=== PATIENT | male | born 1995 | race Caucasian/White ===

== ENCOUNTER 2023-04-02 18:46 | Emergency (ER) | payer OTHER, SELFPAY ==
[2023-04-02 19:08] VITALS: BP 121/68; PULSE 77; RESP 16; TEMP 37.5; O2SAT 99; BMI 19.8
--- NOTE | 2023-04-02 19:11 | ED_ITS ---
HPI - General Adult General Chief complaint: Upper Respiratory Symptoms Stated complaint: sore throat, ear ache/bleeding Time Seen by Provider: 04/02/23 20:27 Source: patient Limitations: no limitations History of Present Illness HPI narrative: 27 years old no significant past medical history presents emergency room for sore throat ongoing for the past week. Patient reports that he has been trying ibuprofen 600 mg once a day without much relief. Patient denies chest pain, cough fever. Abdominal pain nausea or vomiting. Patient denies urinary symptoms. No headache, blurry visions or speech. Related Data Previous Rx's Medication Instructions Recorded amoxicillin 875 mg-potassium 1 tab PO BID #10 tabs 04/02/23 clavulanate 125 mg tablet Allergies Allergy/AdvReac Type Severity Reaction Status Date / Time No Known Allergies Allergy Verified 04/02/23 19:08 Review of Systems Review of Systems: Yes all other systems are reviewed and are negative PENDING SALE TO [facility] Social History Social History Smoked in Last 30 Days: No Substance Use Type: Marijuana Advance Directives: No Advance Directives Information Provided: No Physical Exam ED Vital Signs: Vital Signs - 24 hr 04/02/23 19:08 Temperature 99.5 F Pulse Rate 77 Respiratory Rate 16 Blood Pressure 121/68 Pulse Oximetry 99 Oxygen Delivery Method Room Air BMI result Body Mass Index 19.8 General: Alert, Not in Distress Skin: No rash, warm HEENT: Atraumatic, No Exudate obur positive for Pharyngeal Erythema Resp: Normal Breath sounds bilaterally Cardio: Regular rate and Rhythm, Normal S1, S2 ABD: Abd soft, non tender, no guarding or rebound. Normal Bowel sounds. : No cva tenderness Neuro: Alert, oriented x4, PERRL Strenght 5/5 on all extremities Sensation is preserved in both lower and upper extremities Index to nose: normal Cranial Nerves II-XII grossly intact No dysarthria, or aphasia No neglet. Visual boss are normal bilaterally Psych: Cooperative, NO SI Course Course Course Narrative: This is a rapid medical exam: Additional HPI, ROS, PE not included below will be deferred to primary provider. Patient is a 27-year-old male presenting to the ED with complaint of sore throat for 3 days, right ear pain for 2 days. Daughter is sick with similar symptoms at home. Plan: viral and strep swabs Medical Decision Making Medical Decision Making MDM Narrative: Patient presents emergency room for sore throat. Physical exam is consistent with pharyngitis. Patient has not been taking high dose of NSAID and at this time without tonsillar exudate I think he does not need further testing. Will recommend patient to increase dose of ibuprofen and Tylenol. Patient does not have a primary care physician therefore will be difficult for him to see a medical provider in 3 days therefore I decided to prescribe 5 day course of Augmentin to start in 3 days if symptoms do not improve. Patient understands, agrees with plan and understands return precautions. At this time I do not think patient requires further observation or admission. Admission/Observation Consideration of admission/observation: Escalation of care including admission/observation considered Lab Data MDM Lab Attestation statement: I reviewed the patient's lab results. Labs: Lab Results 04/02/23 Range/Units Unknown Influenza Type A (PCR) NEGATIVE (Negative) Influenza Type B (PCR) NEGATIVE (Negative) RSV RNA Qual (PCR) NEGATIVE (Negative) SARS-CoV-2 RNA (RT-PCR) NEGATIVE (Negative) S. pyogenes GrpA KAREN Negative (Negative) Prescription Management I considered prescription management with: Pain Medication and Antibiotic Discharge Plan Discharge Clinical Impression: Pharyngitis Patient Disposition: Home, Self-Care Additional Instructions: You were seen emergency room for pharyngitis. We recommend using ibuprofen 600 mg every 8 hours for the next 5 days and Tylenol 1000 mg every 6 hours for the next 5 days. We are also prescribing you antibiotic: Augmentin please take this medication if in 3 days he does not have any improvement. Augmentin to be taken twice a day. Return to the emergency room if your symptoms worsen or if you develop shortness of breath, chest pain or you cannot tolerate oral medication. Prescriptions: New amoxicillin-pot clavulanate 875-125 mg tablet 1 tab PO BID Qty: 10 0RF Stand Alone Forms: Work/School Release
[2023-04-02 19:32] LABS: IDNOW Serial# 08D9AD1C; Strep A Nucleic Acid Negative (Negative)
[2023-04-02 20:04] LABS: Influenza A PCR NEGATIVE (Negative); Influenza B PCR NEGATIVE (Negative); Resp Syncy Virus RNA Qual PCR NEGATIVE (Negative); SARS COV2 PCR INHOUSE NEGATIVE (Negative)
[2023-04-02 20:41] VITALS: BP 120/77; PULSE 76; RESP 18; TEMP 36.6; O2SAT 98
== END 2023-04-02 20:46 | disposition home or self-care (01) ==
PROVIDERS: Registered Nurse Emergency; Emergency Provider Student in an Organized Health Care Education/Training Program
DX: J02.9 Acute pharyngitis, unspecified (principal); Z20.822 Contact with and (suspected) exposure to COVID-19; Z20.828 Contact with and (suspected) exposure to other viral communicable diseases
CPT/HCPCS: 0241U; 87651; 99283; 99284

== ENCOUNTER 2024-01-26 19:40 | Emergency (ER) | payer MEDICAID, SELFPAY ==
[2024-01-26 20:23] VITALS: BP 148/86; PULSE 81; RESP 18; TEMP 37.2; O2SAT 99; BMI 20.5
--- NOTE | 2024-01-26 20:26 | ED_ITS ---
HPI - General Adult General Chief complaint: General Medical Stated complaint: bloody stool Time Seen by Provider: 01/26/24 23:31 Source: patient Limitations: no limitations History of Present Illness ED Provider: Fannie Cr PA-C HPI narrative: 28-year-old male presents with rectal bleeding x2 months. Patient states he has known hemorrhoids, he is having bright red blood per rectum with bowel movements. Denies large volume bloody bowel movements, the blood is on the toilet paper. Denies abdominal pain, nausea, vomiting. Patient also complains of difficulty urinating, that he has to ?strain?, to urinate. Denies dysuria, hematuria. Denies testicular pain or swelling, no penile discharge. Related Data Previous Rx's ?Medication ?Instructions ?Recorded amoxicillin 875 mg-potassium 1 tab PO BID #10 tabs 04/02/23 clavulanate 125 mg tablet hydrocortisone acetate 25 mg 25 mg RI BID #12 ea 01/27/24 rectal suppository (Anusol-HC) Allergies Allergy/AdvReac Type Severity Reaction Status Date / Time Penicillins Allergy Unknown Verified 01/26/24 20:24 Review of Systems 2 Review of Systems: Yes all other systems are reviewed and are negative Constitutional: Constitutional: Denies fatigue and Denies fever(s) Cardiovascular: Cardiovascular: Denies chest pain and Denies dyspnea Respiratory: Respiratory: Denies cough and Denies dyspnea Gastrointestinal: Gastrointestinal: Denies abdominal pain, Reports hematochezia, Denies constipation, Denies diarrhea, Denies nausea and Denies vomiting Genitourinary: Genitourinary: Reports difficulty urinating, Denies genital pain and Denies dysuria Endocrine: Endocrine: Denies fatigue [facility] Past Medical History Attestation statement: The following information was validated with the patient. Social History Social History Substance Use Type: Marijuana Advance Directives: No Advance Directives Information Provided: No Do you have a plan to hurt others: No Plan Physical Exam ED Vital Signs: Vital Signs - 24 hr 01/26/24 20:23 01/27/24 00:00 Temperature 98.9 F 97.9 F Pulse Rate 81 73 Respiratory Rate 18 16 Blood Pressure 148/86 H 118/74 Pulse Oximetry 99 98 Oxygen Delivery Method Room Air Room Air BMI result Body Mass Index 20.5 Const Other: Alert, well-appearing Orientation/consciousness: patient oriented x3 Resp Other: Nonlabored respiration Cardio Other: Normal peripheral perfusion GI Other: Abdomen is soft, nondistended nontender, no external hemorrhoids noted on exam no active bleeding per rectum Other: Testicles not swollen no penile discharge Skin Other: Warm dry no rash Neuro General: patient oriented x3, no focal motor deficits and CN's II-XI intact bilaterally Psych Other: Calm cooperative Course Course Course Narrative: This is an RME: Additional HPI, ROS, PE not included below will be deferred to primary provider. RME assessment and note performed by: Faye Mancera PA-C This is a [id number]-[id number]-male who presents to the ER with complaints of bloody stool for the last several months and difficulty urinating. He states that he has to strain to produce a urine stream. He states that this is an issue for his probation as he is unable to produce a urine sample. He states that he gets up in the middle of the night 3-4 times. He also reports he has had bloody stool. No known medical problems. Plan: Labs, UA Medical Decision Making Medical Decision Making MDM Narrative: 28-year-old male presents with rectal bleeding x2 months. Patient states he has known hemorrhoids, he is having bright red blood per rectum with bowel movements. Denies large volume bloody bowel movements, the blood is on the toilet paper. Denies abdominal pain, nausea, vomiting. Patient also complains of difficulty urinating, that he has to ?strain?, to urinate. Denies dysuria, hematuria. Denies testicular pain or swelling, no penile discharge. Problem: Known hemorrhoids History: Per patient I have considered the following differential diagnoses: Hemorrhoids, thrombosed hemorrhoids, perirectal abscess, diverticulosis, diverticulitis, urethritis, UTI, BPH, torsion Plan: Screening labs including a urinalysis were obtained from triage. The patient is not anemic, the urine is not infected. He has no risk for STD, no evidence of urethritis on exam, no swelling of the testicles or pain. No indication for scrotal ultrasound. It would be odd for the patient to have BPH by the age of 28. He can follow up with the urologist. The patient has hemorrhoids, this is the likely source of the bleeding as it is minimal. I told him he needs to follow up with his primary care provider to be referred to GI for a colonoscopy. He understands. We will send with the Anusol suppositories. He has no abdominal pain, his exam was benign, diverticulitis not likely. I have independently reviewed the following tests: Labs: No leukocytosis, not anemic, no electrolyte abnormality, urine not infected Lab Data 01/26/24 20:34 01/26/24 20:34 Labs: Lab Results 01/26/24 01/26/24 Range/Units 20:34 23:45 WBC 7.0 (4.8-10.8) X10*3/uL RBC 5.32 (4.60-5.80) X10*6/uL Hgb 14.6 (14.0-18.0) g/dl Hct 44.3 (42.0-52.0) % MCV 83.3 (80.0-98.0) fL MCH 27.4 (27.0-33.0) pg MCHC 33.0 (31.0-36.0) g/dl RDW 13.5 (11.0-16.0) % Plt Count 266 (160-400) X10*3/uL MPV 11.3 (9.4-12.4) fL Immature Gran % (Auto) 0.1 (0.0-0.4) % Neut % (Auto) 61.0 (45-73) % Lymph % (Auto) 30.4 (20-40) % [place] % (Auto) 7.5 (2-11) % Eos % (Auto) 0.6 (0-4) % Baso % (Auto) 0.4 (0-2) % Lymph # (Auto) 2.1 (1.2-4.9) X10*3/uL [place] # (Auto) 0.5 (0.1-1.2) X10*3/uL Eos # (Auto) 0.0 (0.0-0.4) X10*3/uL Baso # (Auto) 0.0 (0.0-0.2) X10*3/uL Abs Immat Gran (auto) 0.01 (0.00-0.03) X10*3/uL Absolute Neuts (auto) 4.2 (2.0-8.3) x10*3/uL Absolute Nucleated RBC 0.000 (0.0-0.012) X10*3/uL Nucleated RBC % (auto) 0.0 (0.0-0.2) /100WBC Sodium 145 (135-145) mmol/L Potassium 3.8 (3.3-5.1) mmol/L Chloride 108 (96-108) mmol/L Carbon Dioxide 28 (22-29) mmol/L Anion Gap 13 (12-20) BUN 12 (9-16) mg/dL Creatinine 0.90 (0.5-1.4) mg/dL Estim Creat Clear Calc 103.9 Estimated GFR > 60 Random Glucose 75 (60-115) mg/dL Calcium 9.3 (8.4-10.2) mg/dL Total Bilirubin 0.5 (0.0-1.0) mg/dL Direct Bilirubin 0.2 (0.0-0.5) mg/dL AST 25 (5-37) U/L ALT 21 (0-40) U/L Alkaline Phosphatase 60 (39-117) U/L Total Protein 7.0 (6.5-8.0) g/dL Albumin 4.4 (3.5-5.0) g/dL Urine Color Yellow Urine Appearance Clear Urine pH 5.5 (5.0-9.0) Ur Specific [place] >= 1.030 H (1.005-1.025) Urine Protein Negative (Neg-Trace) mg/dL Urine Glucose (UA) Negative (Negative) mg/dL Urine Ketones Trace (Negative) mg/dL Urine Blood Negative (Negative) Urine Nitrite Negative (Negative) Ur Leukocyte Esterase Negative (Negative) Discharge Plan Discharge Clinical Impression: Bleeding hemorrhoids Patient Disposition: Home, Self-Care Instructions: Hemorrhoids (ED), Sitz Bath (DC) Additional Instructions: All of your labs were normal. In regard to your ongoing issues with the hemorrhoids, see home care instructions. You can use the rectal suppositories as needed for discomfort or if they become enlarged. You need to follow up with your primary care provider, this should refer you to a chairman & co founder for potential colonoscopy. In regard to your urinary hesitancy issues, you need to follow up with a urologist. Your primary care provider can provide you with this consult as well. Prescriptions: New hydrocortisone acetate [Anusol-HC] 25 mg suppository 25 mg RI BID Qty: 12 0RF No Action amoxicillin-pot clavulanate 875-125 mg tablet 1 tab PO BID Qty: 10 0RF Interventions: ED Discharge Assessment Last Done: 01/27/24 01:15 Discharge Date/Time: 01/27/24 01:15 Print Language: Spanish
--- OUTSIDE RECORDS SUMMARY | 2024-01-26 20:38 | XMS_ITS | Continuity of Care Document ---
Author Organization [facility] ter Address [address] [place] [id number]- Care Team Providers Care Weatherization Crew Leader Name Role Phone Not on Staff, PCP Primary Care Physician Unavail able Encounter [facility] Date(s): 09/21/21 - 09/21/[address] [address]- Discharge Disposition: A-D/C Home Attending Physician: Rj Gallegos MD Admitting Physician: Rj Gallegos MD Referring Physician: Not on Staff, Referring MD Allergies, Adverse Reactions, Alerts No Known Allergies Immunizations Given and Recorded Vaccine Date Status Refusal Reason Meningococcal Poly Vacc (oldterm) 1 04/16/06 Given influenza virus vaccine, inactivated 2 04/16/06 Gi cherelle tetanus-diphtheria toxoids (Td) 11/17/04 Given Measles/Mumps/Rubella Virus Vaccine 05/13/98 Given Measles/Mumps/Rubella Virus Vaccine 06/05/94 Given Poliovirus Vaccine, Inactivated 05/13/98 Given Poliovirus Vaccine, Inactivated 93 Given Poliovirus Vaccine, Inactivated 93 Given Poliovirus Vaccine, Inactivated 93 Given diphtheria/tetanus/pertussis, acel(DTaP) 07/07/94 Given diphtheria/tetanus/pertussis, acel(DTaP) 93 Given diphtheria/tetanus/pertussis, acel(DTaP) 93 Given diphtheria/tetanus/pertussis, acel(DTaP) 93 Given Hepatitis B Vaccine (old term) 93 Given Hepatitis B Vaccine (old term) 93 Given Hepatitis B Vaccine (old term) 93 Given 1Admin Note: VIS GIVEN 2Admin Note: VIS GIVEN Medications benzoyl peroxide topical 5% cream 1, applicator, Topically, 2 times a day, 45, Gm, 5, 5, 07/22/07 10:43:22, [id number], Constant Indicator Start Date: 07/22/07 Status: Ordered clindamycin topical 1% lotion 1, applicator, Topically, 2 times a day, 60, mL, 5, 5, 07/22/07 10:44:32, Print RYAN Number, [id number], Constant Indicator Start Date: 07/22/07 Status: Ordered Problem List Condition Effective Dates Status Health Status Inform ant Acne(Confirmed) Active 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 Vital Signs Most recent to oldest [Reference Range]: 1 2 Height 173 cm (09/21/21 2:09 PM) Weight 59.5 kg (09/21/21 2:09 PM) Oxygen Saturation [94-100 %] 99 % (09/21/21 2:09 PM) 99 % (09/21/21 2:05 PM) Pulse Rate [55-90 bpm] 86 bpm (09/21/21 2:09 PM) 78 bpm (09/21/21 2:05 PM) Body Mass Index [18.5-24.99] 19.88 (09/21/21 2:09 PM) Blood Pressure [90-138/55-84 mm Hg] 115/ 60mm Hg (09/21/21 2:09 PM) Respiratory Rate [16-30 br/min] 18 br/mi n (09/21/21 2:09 PM) Temperature [96.8-100.4 DegF] 98.1 DegF (09/21/21 2:09 PM) Mode of Delivery (Oxygen) Room air (09/21/21 2:09 PM) Room air (09/21/21 2:05 PM) Blood pressure sites Arm, right (09/21/21 2:09 PM) Temperature Route Oral (09/21/21 2:09 PM) Dry Weight 59.5 kg (09/21/21 2:09 PM)
--- OUTSIDE RECORDS SUMMARY | 2024-01-26 20:38 | XMS_ITS | Continuity of Care Document ---
Author Organization [facility] ter Address [address] [place] [id number]- Care Team Providers Care Bus System Operator Name Role Phone Not on Staff, PCP Primary Care Physician Unavail able Encounter [facility] Date(s): 04/09/21 - 04/09/[address] [address]- Encounter Diagnosis Abdominal pain, lower(Final) - 04/09/21 Discharge Disposition: A-D/C Home Attending Physician: Calista Hinojosa MD Admitting Physician: Calista Hinojosa MD Referring Physician: Not on Staff, Referring MD Allergies, Adverse Reactions, Alerts Substance Reaction Severity Status NKA Active Immunizations Given and Recorded Vaccine Date Status [...] day, 45, Gm, 5, 5, 07/22/07 10:43:22, [id number], Constant Indicator Start Date: 07/22/07 Status: Ordered clindamycin topical 1% lotion 1, applicator, Topically, 2 times a day, 60, mL, 5, 5, 07/22/07 10:44:32, Print RYAN Number, [id number], Constant Indicator Start Date: 07/22/07 Status: Ordered Problem List Condition Effective Dates Status Health Status Inform ant Acne(Confirmed) Active 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 Vital Signs Most recent to oldest [Reference Range]: 1 2 3 Oxygen Saturation [94-100 %] 100 % (04/09/21 12:24 PM) 99 % (04/09/21 11:27 AM) 100 % (04/09/21 10:30 AM) Pulse Rate [55-90 bpm] 93 bpm *H* (04/09/21 12:24 PM) 92 bpm *H* (04/09/21 11:27 AM) 93 bpm *H* (04/09/21 10:30 AM) Blood Pressure [90-138/55-84 mm Hg] 140/74mm Hg *H* (04/09/21 12:24 PM) 118/68mm Hg (04/09/21 11:27 AM) 130/67mm Hg (04/09/21 10:30 AM) Respiratory Rate [16-30 br/min] 16 br/min (04/09/21 12:24 PM) 16 br/min (04/09/21 11:27 AM) 20 br/min (04/09/21 9:51 AM) Temperature [96.8-100.4 DegF] 98.4 DegF (04/09/21 12:24 PM) 98.5 DegF (04/09/21 11:27 AM) 99 DegF (04/09/21 10:30 AM) Mode of Delivery (Oxygen) Room air (04/09/21 12:24 PM) Room air (04/09/21 11:27 AM) Room air (04/09/21 10:30 AM) Blood pressure sites Arm, right (04/09/21 12:24 PM) Arm, right (04/09/21 11:27 AM) Arm, right (04/09/21 10:30 AM) Temperature Route Oral (04/09/21 12:24 PM) Oral (04/09/21 11:27 AM) Oral (04/09/21 10:30 AM)
[2024-01-26 20:41] LABS: MANUAL DIFF FLAG NO
[2024-01-26 20:42] LABS: Basophils Percent Auto 0.4 % (0-2); Eosinophils Percent Auto 0.6 % (0-4); Hematocrit 44.3 % (42.0-52.0); Hemoglobin 14.6 g/dl (14.0-18.0); Imm Gran Abs Auto 0.01 X10*3/uL (0.00-0.03); Imm Gran Pct Auto 0.1 % (0.0-0.4); Lymphocytes Absolute Auto 2.1 X10*3/uL (1.2-4.9); Lymphocytes Percent Auto 30.4 % (20-40); Mean Corpuscular Hemoglobin 27.4 pg (27.0-33.0); Mean Corpuscular Volume 83.3 fL (80.0-98.0); Mean Platelet Volume 11.3 fL (9.4-12.4); Monocytes Absolute Auto 0.5 X10*3/uL (0.1-1.2); Monocytes Percent Auto 7.5 % (2-11); Neutrophils Absolute Auto 4.2 x10*3/uL (2.0-8.3); Platelet Count 266 X10*3/uL (160-400); Red Blood Count 5.32 X10*6/uL (4.60-5.80); Red Cell Distribution Width 13.5 % (11.0-16.0)
[2024-01-26 20:58] LABS: Alanine Aminotransferase 21 U/L (0-40); Albumin Level 4.4 g/dL (3.5-5.0); Alkaline Phosphatase 60 U/L (39-117); Anion Gap 13 (12-20); Aspartate Amino Transferase 25 U/L (5-37); Bilirubin Direct 0.2 mg/dL (0.0-0.5); Bilirubin Total 0.5 mg/dL (0.0-1.0); Blood Urea Nitrogen 12 mg/dL (9-16); Calcium 9.3 mg/dL (8.4-10.2); Carbon Dioxide 28 mmol/L (22-29); Chloride 108 mmol/L (96-108); Creatinine Clr Calc Pharmacy 103.9; Estimated Glomerular Filt Rate > 60; Glucose Random 75 mg/dL (60-115); Potassium 3.8 mmol/L (3.3-5.1); Sodium 145 mmol/L (135-145)
--- NOTE | 2024-01-26 23:36 | PC.NURSE ---
pt from lobby, assume care of pt at this time
[2024-01-26 23:50] LABS: Appearance Urine Clear; Color Urine Yellow; Glucose Urine UA Negative (Negative); Leukocyte Esterase Urine Negative (Negative); Nitrite Urine Negative (Negative); PH 5.5 (5.0-9.0); Specific Gravity - Urine >= 1.030 (1.005-1.025); Urine Blood Negative (Negative); Urine Ketones Trace mg/dL (Negative); Urine Protein Negative (Neg-Trace)
[2024-01-27] VITALS: BP 118/74; PULSE 73; RESP 16; TEMP 36.6; O2SAT 98
[2024-01-27 01:15] VITALS: BP 118/74; PULSE 73; RESP 16; TEMP 36.6; O2SAT 98
== END 2024-01-27 01:15 | disposition home or self-care (01) ==
PROVIDERS: Physician Assistant Medical; Emergency Provider Internal Medicine
DX: K64.9 Unspecified hemorrhoids (principal); K62.5 Hemorrhage of anus and rectum
CPT/HCPCS: 36415; 80048; 80076; 81003; 85025; 99283